=== PATIENT | female | born 1970 | race American Indian/Alaskan Native ===

== ENCOUNTER 2018-08-01 20:17 | Emergency (ER) | payer SELFPAY ==
[2018-08-01 20:31] VITALS: BP 145/95; PULSE 74; RESP 16; TEMP 98.7; O2SAT 98
--- NOTE | 2018-08-01 20:54 | ED PDOC ---
HPI: Trauma/Fall - HPI Time Seen by Provider: 08/01/18 20:27 Chief Complaint (Nursing): Trauma Chief Complaint (Provider): fall History Per: Patient Associated Symptoms: LOC Additional Complaint(s): 48 year old female with no past medical history presents to the ED with pain to left shoulder, low back, tailbone and left hip s/p trip and fall. Patient slipped while at football game and landed on her left side. She denies head injury or LOC. Patient has been able to walk since time of injury. Patient was driven to ED by her sister. PMD: None Past Medical History Reviewed: Historical Data, Nursing Documentation, Vital Signs Vital Signs: Last Vital Signs Temp 98.7 F 08/01/18 20:28 Pulse 74 08/01/18 20:28 Resp 16 08/01/18 20:28 BP 145/95 H 08/01/18 20:28 Pulse Ox 98 08/01/18 20:28 - Medical History PMH: No Chronic Diseases - Surgical History Surgical History: No Surg Hx - Family History Family History: States: No Known Family Hx - Living Arrangements Living Arrangements: With Family - Social History Current smoker - smoking cessation education provided: Yes Alcohol: Occasional Drugs: Denies - Home Medications Home Medications: Ambulatory Orders Medication Instructions Recorded Cyclobenzaprine [Cyclobenzaprine 10 mg PO TID PRN #20 tab 08/01/18 HCl] Naproxen [Naprosyn] 500 mg PO BID #20 tab 08/01/18 - Allergies Allergies/Adverse Reactions: Allergies Allergy/AdvReac Type Severity Reaction Status Date / Time No Known Allergies Allergy Verified 08/01/18 20:28 Review of Systems ROS Statement: Except As Marked, All Systems Reviewed And Found Negative Musculoskeletal: Positive for: Shoulder Pain (left), Back Pain, Leg Pain (left hip) Neurological: Positive for: Other (no head injury or LOC) Physical Exam - Reviewed Nursing Documentation Reviewed: Yes Vital Signs Reviewed: Yes - Physical Exam Appears: Positive for: Well, Non-toxic, No Acute Distress Head Exam: Positive for: ATRAUMATIC, NORMOCEPHALIC Skin: Positive for: Normal Color. Negative for: Rash Eye Exam: Positive for: Normal appearance Neck: Positive for: Normal, Painless ROM Cardiovascular/Chest: Positive for: Regular Rate, Rhythm Respiratory: Positive for: Normal Breath Sounds. Negative for: Wheezing, Respiratory Distress Gastrointestinal/Abdominal: Positive for: Soft. Negative for: Tenderness, Distended, Guarding, Rebound Back: Positive for: Vertebral Tenderness (mild tenderness to lumbosacral spine with no stepoff.). Negative for: L CVA Tenderness, R CVA Tenderness Extremity: Positive for: Tenderness (tenderness and decreased ROM to left shoulder), Other (tenderness to left lateral hip with full ROM.) Neurologic/Psych: Positive for: Alert, Oriented (3x) - Laboratory Results Urine POC: Negative (test declined, states she will sign waiver that she is not , currently menstruating) - ECG O2 Sat by Pulse Oximetry: 98 (RA) Pulse Ox Interpretation: Normal - Other Rad Left hip and pelvis x-ray X-Ray: Interpreted by Me, Viewed By Me X-Ray Interpretation: no fx, no dis Left shoulder x-ray X-Ray: Interpreted by Me, Viewed By Me X-Ray Interpretation: no fx, no dis LS Spine x-ray and sacrum/coccyx X-Ray: Interpreted by Me, Viewed By Me X-Ray Interpretation: no fx, no dis Medical Decision Making Medical Decision Makin:27 Initial impression: 48 year old female with multiple injuries status post a fall. Initial plan: * XRay hip min 2v w/ pelvis left * XRay LS spine AP/LAT * XRay sacrum &/or coccyx (min 2vw) * XRay shoulder left * flexeril 10 mg PO * toradol 30 mg IM * tylenol 325 mg tab, 975 mg PO Patient is aware of x-ray results. All questions answered. Patient reports improvement pain after meds given in ED. Patient given sling for left arm. Prescriptions for Naprosyn and Flexeril provided along with referral for ortho follow up. Scribe Attestation: Documented by Kary Lara, acting as a scribe for Ginny Mariano PA-C. Provider Scribe Attestation: All medical record entries made by the Scribe were at my direction and personally dictated by me. I have reviewed the chart and agree that the record accurately reflects my personal performance of the history, physical exam, medical decision making, and the department course for this patient. I have also personally directed, reviewed, and agree with the discharge instructions and disposition. Procedures - Splinting Location: left shoulder Pre-Made Type: sling Pre-Proc Neuro Vasc Exam: normal Post-Proc Neuro Vasc Exam: normal Disposition - Clinical Impression Clinical Impression: Hip sprain, Back strain, Shoulder strain - Patient ED Disposition Is Patient to be Admitted: No Counseled Patient/Family Regarding: Studies Performed, Diagnosis, Need For Followup, Rx Given, Smoking Cessation - Disposition Referrals: Allen Iniguez MD [Staff Provider] - Disposition: Routine/Home Disposition Time: 21:39 Condition: STABLE Additional Instructions: Ice, rest and elevate affected areas. Take prescription meds as directed as needed for pain. Follow-up with primary doctor or orthopedist for any persistent symptoms. Prescriptions: Cyclobenzaprine [Cyclobenzaprine HCl] 10 mg PO TID PRN #20 tab PRN Reason: Muscle Spasm Naproxen [Naprosyn] 500 mg PO BID #20 tab Instructions: Muscle Strain, Low Back Pain in Adults, Lower Extremity Muscle Strain, Shoulder Sprain (DC) Forms: [facility] [facility] (Urdu)
--- NOTE | 2018-08-02 08:45 | RAD ---
Date of service: 08/01/2018 PROCEDURE: Radiographs of the Left Shoulder. Three views of the left shoulder were performed. HISTORY: trauma COMPARISON: No prior. FINDINGS: BONES: Normal. No fracture. JOINTS: Normal. Glenohumeral and acromioclavicular joints preserved. No osteoarthritis. SOFT TISSUES: Normal. OTHER FINDINGS: Visualized left ribs and lung are unremarkable. Clavicle is intact. No AC joint widening is seen. IMPRESSION: Normal radiographs of the left shoulder.
--- NOTE | 2018-08-02 08:47 | RAD ---
Date of service: 08/01/2018 PROCEDURE: Radiographs of the Sacrum and Coccyx HISTORY: trauma COMPARISON: None available. TECHNIQUE: Frontal and lateral views of the sacrum and coccyx FINDINGS: BONES: Sacrum and coccyx unremarkable. No fracture or focal lesion. SACROILIAC JOINTS: No sacroiliac joint widening is noted. Sacral foramina are unremarkable. OTHER FINDINGS: Degenerative disc disease is seen in the lower lumbar spine region without malalignment or fracture. Coccyx is intact. IMPRESSION: No fracture.
--- NOTE | 2018-08-02 08:49 | RAD ---
Date of service: 08/01/2018 PROCEDURE: Radiographs of the Lumbar Spine. HISTORY: trauma COMPARISON: No prior. FINDINGS: BONES: Three views of the lumbar spine were performed for trauma and back pain. No fracture is seen. No malalignment is noted. There is evidence of moderate degenerative disc disease in the lower lumbar spine region. There is scoliosis of the thoracolumbar junction. Moderate degenerative facet changes are noted in the lower lumbar spine region. No sacroiliac joint widening is seen. Pedicles are intact. DISC SPACES: See above. OTHER FINDINGS: Probable hypoplastic 12th ribs. IMPRESSION: No appreciable fracture. Moderate degenerative disc disease in the lower lumbar spine region. Scoliosis.
--- NOTE | 2018-08-02 08:51 | RAD ---
Date of service: 08/01/2018 PROCEDURE: Left hip with pelvis HISTORY: trauma COMPARISON: No prior TECHNIQUE: Frontal view of the pelvis and frontal and frogleg views of the left hip were performed. FINDINGS: No fracture is seen. No lytic process is noted. Degenerative changes of both hip joints are noted. Bilateral femoral acetabular impingement type morphology is not excluded. Symphysis is intact without abnormal widening. Pubic rami are intact. No sacroiliac joint widening is seen. No femoral head flattening is noted. IMPRESSION: No fracture. See above.
== END 2018-08-01 21:49 | disposition home or self-care (01) ==
LOC: H.ER 20:17
DX: S39.012A Strain of muscle, fascia and tendon of lower back, initial encounter (principal); S46.912A Strain of unspecified muscle, fascia and tendon at shoulder and upper arm level, left arm, initial encounter; S73.102A Unspecified sprain of left hip, initial encounter; W19.XXXA Unspecified fall, initial encounter; Y92.321 Football field as the place of occurrence of the external cause; F17.200 Nicotine dependence, unspecified, uncomplicated
CPT/HCPCS: 72100; 72220; 73030; 73502; 96372; 99284; J1885